=== PATIENT | female | born 1960 | race Caucasian/White ===

== ENCOUNTER 2023-08-04 09:40 | Outpatient (CLI) | payer BC | END 2023-08-04 09:41 | disposition home or self-care (01) | LOC: CSHMAMMO 09:40 | PROVIDERS: ATTEND Obstetrics & Gynecology | DX: Z12.31 Encounter for screening mammogram for malignant neoplasm of breast (principal) | CPT/HCPCS: 77063; 77067 ==

== ENCOUNTER 2024-10-04 09:30 | Outpatient (CLI) | payer MEDICARE | END 2024-10-04 09:31 | disposition home or self-care (01) | LOC: CSHMAMMO 09:30 | PROVIDERS: ATTEND Obstetrics & Gynecology | DX: Z12.31 Encounter for screening mammogram for malignant neoplasm of breast (principal) | CPT/HCPCS: 77063; 77067 ==